=== PATIENT | female | born 1945 | race American Indian/Alaskan Native ===

== ENCOUNTER 2021-05-01 05:48 | Emergency (ER) | payer MEDICARE ==
--- NOTE | 2021-05-01 06:07 | Emergency Department Report ---
ED CPR HPI - General Chief Complaint: Cardiac Arrest/CPR Stated Complaint: CARDIAC ARREST Time Seen by Provider: 05/01/21 06:04 Source: EMS - History of Present Illness Initial Comments: 75 yo F with unknown PMH here after unwitnessed cardiac arrest. Patient was last seen around an hour and a half prior to being found. EMS stated that the patient did appear stiff when they arrived they placed a Barrie airway continued CPR gave epi and transported patient to the emergency department. MD Complaint: found unresponsive - Related Data Home Medications Medication Instructions Recorded Confirmed Last Taken Alendronate Sodium 70 mg PO 04/29/13 04/29/13 Unknown Aspirin [Baby Aspirin] 81 mg PO 04/29/13 04/29/13 Unknown Atorvastatin [Lipitor] 80 mg PO QHS 04/29/13 04/29/13 Unknown Celecoxib [celeBREX] 200 mg PO 04/29/13 04/29/13 Unknown Metoprolol [Lopressor] 50 mg PO 04/29/13 04/29/13 Unknown Mv,Sudeep,Min/Iron/Folic Acid/Lut 1 each PO 04/29/13 04/29/13 Unknown [Complete Multi Tablet] Omeprazole [Prilosec] 20 mg PO QDAY 04/29/13 04/29/13 Unknown Potassium Chloride 10 Meq [KCl] 10 meq PO ONCE 04/29/13 04/29/13 Unknown Allergies Allergy/AdvReac Type Severity Reaction Status Date / Time codeine Allergy Vomiting Verified 05/09/13 12:33 lactose AdvReac Nausea Verified 05/09/13 12:33 ED Review of Systems ROS: Stated complaint: CARDIAC ARREST Other details as noted in HPI Comment: Unobtainable due to pts medical conditions ED Past Medical Hx - Past Medical History Hx Hypertension: Yes (ON METOPROLOL) - Surgical History Hx Breast Surgery: Yes (BREAST BX-BENIGN) - Social History Smoking Status: Never Smoker - Medications Home Medications: Home Medications Medication Instructions Recorded Confirmed Last Taken Type Alendronate Sodium 70 mg PO 04/29/13 04/29/13 Unknown History Aspirin [Baby Aspirin] 81 mg PO 04/29/13 04/29/13 Unknown History Atorvastatin [Lipitor] 80 mg PO QHS 04/29/13 04/29/13 Unknown History Celecoxib [celeBREX] 200 mg PO 04/29/13 04/29/13 Unknown History Metoprolol [Lopressor] 50 mg PO 04/29/13 04/29/13 Unknown History Mv,Sudeep,Min/Iron/Folic Acid/Lut 1 each PO 04/29/13 04/29/13 Unknown History [Complete Multi Tablet] Omeprazole [Prilosec] 20 mg PO QDAY 04/29/13 04/29/13 Unknown History Potassium Chloride 10 Meq [KCl] 10 meq PO ONCE 04/29/13 04/29/13 Unknown History ED Physical Exam - General General appearance: other (Unresponsive) - Head Head exam: Present: atraumatic, normocephalic - Eye Eye exam: Present: other (Dilated pupils) - ENT ENT exam: Present: other (Barrie airway in place with bright red blood coming from tube) - Neck Neck exam: Present: normal inspection - Respiratory Respiratory exam: Present: other (Equal breath sounds with bagging, no spontaneous respirations) - Cardiovascular Cardiovascular Exam: Present: other (No palpable pulse) - GI/Abdominal GI/Abdominal exam: Present: distended - Rectal Rectal exam: Present: deferred - Extremities Exam Extremities exam: Present: other (There is an IO in place in the left tibia) - Back Exam Back exam: Present: normal inspection - Neurological Exam Neurological exam: Present: other (Unresponsive) - Psychiatric Psychiatric exam: Present: other (Unable to obtain) - Skin Skin exam: Present: other (Cool pale skin) ED Medical Decision Making - Medical Decision Making Patient is a 75-year-old female with unknown past medical history after cardiac arrest. ACLS was followed. Patient initial rhythm was asystole. Patient was given epi, bicarb, calcium gluconate. Her blood sugar was checked and was above 90. Patient had IV fluids going through an IO. We ran several rounds of CPR with no change in rhythm. Patient remained in asystole. There was no cardiac activity on ultrasound. Please see nursing documentation for specifics. I called patient's son and informed him of patient's . Critical care attestation.: If time is entered above; I have spent that time in minutes in the direct care of this critically ill patient, excluding procedure time. ED Disposition Clinical Impression: Cardiac arrest Disposition: 20 Is pt being admited?: No Does the pt Need Aspirin: No Condition: Stable
[2021-05-01] MEDS ORDERED: EPINEPHrine 1 MG/10 ML SYRINGE ONE (14:22)
[2021-05-01] MEDS ORDERED: SODIUM BICARB 8.4% 50 MEQ/50 ML SYRINGE IV ONE (14:22)
[2021-05-01] MEDS ORDERED: CALCIUM CHLORIDE 1,000 MG/10 ML SYRINGE IV ONE (14:22)
== END 2021-05-01 08:02 ==
LOC: ED 05:48
DX: I46.9 Cardiac arrest, cause unspecified (principal); I10 Essential (primary) hypertension; Z88.5 Allergy status to narcotic agent; Z91.011 Allergy to milk products
CPT/HCPCS: 92950; 99285; J0171; J3490